=== PATIENT | male | born 2005 | race Caucasian/White ===

== ENCOUNTER 2025-07-20 07:51 | Inpatient (IN) | payer OTHER ==
[2025-07-20] MEDS ORDERED: Ketorolac Tromethamine 30 MG (1 mL) VIAL ONE (09:21)
[2025-07-20 09:25] LABS: #Basophils Less than 0.03 10x3/uL (0.0-0.2); #Eosinophils 0.11 10x3/uL (0.0-0.5); #Monocytes 1.02 10x3/uL (0.0-1.1); #Neutrophils 7.70 10x3/uL (1.5-8.4); %Basophils 0.1 % (0.0-2.0); %Eosinophils 1.1 % (0.0-6.0); %Lymphocytes 14.5 % (18.0-47.0); %Monocytes 9.8 % (0.0-10.0); %Neutrophils 74.2 % (40.0-75.0); Hematocrit 43.0 % (38.8-50.0); Hemoglobin 15.2 g/dL (13.5-17.5); Mean Corpuscular Hemoglobin 30.6 pg (27.0-33.0); Mean Corpuscular Volume 86.7 fL (81.2-95.1); Platelet Count 225 10x3/uL (150-450); Red Blood Cell (RBC) Count 4.96 10x6/uL (4.32-5.72); White Blood Cell (WBC) Count 10.37 10x3/uL (3.5-10.5)
[2025-07-20 09:40] LABS: ALT (SGPT) 22 U/L (Less than 45); AST (SGOT) 37 U/L (11-34); Albumin 4.2 g/dL (3.1-4.5); Alkaline Phosphatase 101 U/L (50-130); Anion Gap 11 mmol/L (10-20); BUN (Urea Nitrogen) 14 mg/dL (8.4-21.0); Bilirubin, Total 0.6 mg/dL (0.3-1.2); Calc. Creatinine Clearance 0 mL/min (70-130); Calcium 8.9 mg/dL (7.8-10.44); Carbon Dioxide 22 mmol/L (22-29); Chloride 108 mmol/L (98-107); Globulin 2.5 g/dL (2.4-3.5); Glucose 86 mg/dL (70-105); Potassium 4.2 mmol/L (3.5-5.1); Sodium 137 mmol/L (136-145)
[2025-07-20] MEDS ORDERED: Iopamidol 370 76% 100 ML VIAL ONE (10:18)
[2025-07-20] MEDS ORDERED: Acetaminophen 325 MG TAB PO PRN (10:34)
[2025-07-20] MEDS ORDERED: Ondansetron PF 4 MG/2 ML Vial IVP PRN (10:34)
[2025-07-20 11:58] VITALS: BMI 23.7
[2025-07-20] MEDS: Clindamycin/D5W 600 MG in Premix 1 BAG IVPB SCH ×2 (12:19→17:22)
[2025-07-20] MEDS: Ibuprofen 200 MG TAB PO PRN (16:30)
[2025-07-20] MEDS: Melatonin 3 MG TAB PO PRN (21:41)
[2025-07-21 04:16] LABS: #Basophils Less than 0.03 10x3/uL (0.0-0.2); #Eosinophils 0.15 10x3/uL (0.0-0.5); #Monocytes 1.10 10x3/uL (0.0-1.1); #Neutrophils 6.03 10x3/uL (1.5-8.4); %Basophils 0.2 % (0.0-2.0); %Eosinophils 1.6 % (0.0-6.0); %Lymphocytes 23.4 % (18.0-47.0); %Monocytes 11.5 % (0.0-10.0); %Neutrophils 63.0 % (40.0-75.0); Hematocrit 41.1 % (38.8-50.0); Hemoglobin 14.4 g/dL (13.5-17.5); Mean Corpuscular Hemoglobin 30.6 pg (27.0-33.0); Mean Corpuscular Volume 87.3 fL (81.2-95.1); Platelet Count 221 10x3/uL (150-450); Red Blood Cell (RBC) Count 4.71 10x6/uL (4.32-5.72); White Blood Cell (WBC) Count 9.57 10x3/uL (3.5-10.5)
[2025-07-21 04:28] LABS: Anion Gap 12 mmol/L (10-20); BUN (Urea Nitrogen) 18 mg/dL (8.4-21.0); Calc. Creatinine Clearance 143 mL/min (70-130); Calcium 8.9 mg/dL (7.8-10.44); Carbon Dioxide 24 mmol/L (22-29); Chloride 108 mmol/L (98-107); Glucose 107 mg/dL (70-105); Potassium 4.0 mmol/L (3.5-5.1); Sodium 140 mmol/L (136-145)
[2025-07-22 04:08] LABS: #Basophils Less than 0.03 10x3/uL (0.0-0.2); #Eosinophils 0.18 10x3/uL (0.0-0.5); #Monocytes 0.86 10x3/uL (0.0-1.1); #Neutrophils 4.22 10x3/uL (1.5-8.4); %Basophils 0.3 % (0.0-2.0); %Eosinophils 2.4 % (0.0-6.0); %Lymphocytes 30.8 % (18.0-47.0); %Monocytes 11.3 % (0.0-10.0); %Neutrophils 55.1 % (40.0-75.0); Hematocrit 39.6 % (38.8-50.0); Hemoglobin 13.9 g/dL (13.5-17.5); Mean Corpuscular Hemoglobin 30.5 pg (27.0-33.0); Mean Corpuscular Volume 87.0 fL (81.2-95.1); Platelet Count 212 10x3/uL (150-450); Red Blood Cell (RBC) Count 4.55 10x6/uL (4.32-5.72); White Blood Cell (WBC) Count 7.64 10x3/uL (3.5-10.5)
[2025-07-22 04:19] LABS: Anion Gap 12 mmol/L (10-20); BUN (Urea Nitrogen) 14 mg/dL (8.4-21.0); Calc. Creatinine Clearance 155 mL/min (70-130); Calcium 8.8 mg/dL (7.8-10.44); Carbon Dioxide 28 mmol/L (22-29); Chloride 103 mmol/L (98-107); Glucose 99 mg/dL (70-105); Potassium 4.6 mmol/L (3.5-5.1); Sodium 138 mmol/L (136-145)
[2025-07-22] MEDS: Linezolid 600 MG TAB PO SCH (20:29)
[2025-07-23 12:11] VITALS: BP 131/66; TEMP 98.2
== END 2025-07-23 14:17 | disposition home or self-care (01) | DRG 603 ==
LOC: CSHERS 07:51 → CSHTELE 11:42 → OBSVTOIN 07-21 15:09
PROVIDERS: ADMIT Hospitalist; ATTEND Family Medicine
DX: L03.211 Cellulitis of face (principal)
CPT/HCPCS: 36415; 70487; 80048; 80053; 85025; 87070; 87077; 87205; 96365; 96374; 96375; 96376; G0378; J1885; J3490; Q9967